=== PATIENT | female | born 1995 | race Caucasian/White ===

== ENCOUNTER 2021-06-03 14:37 | Observation (INO) | payer OTHER, SELFPAY ==
[~2021-06-03] VITALS: Ht 162.6 cm; Wt 82.6 kg
[2021-06-03 15:35] VITALS: BP 114/67
== END 2021-06-03 15:15 | disposition home or self-care (01) ==
LOC: MLD 14:37
PROVIDERS: ADMIT Obstetrics & Gynecology; ATTEND Obstetrics & Gynecology
DX: Z34.82 Encounter for supervision of other normal pregnancy, second trimester (principal); Z20.822 Contact with and (suspected) exposure to COVID-19; Z3A.21 21 weeks gestation of pregnancy; W19.XXXA Unspecified fall, initial encounter; Y93.89 Activity, other specified; Y92.89 Other specified places as the place of occurrence of the external cause
CPT/HCPCS: 59025; G0378

== ENCOUNTER 2024-02-09 12:28 | Emergency (ER) | payer OTHER ==
[~2024-02-09] VITALS: Ht 162.6 cm; Wt 88.5 kg
[2024-02-09 12:32] VITALS: BP 131/85; PULSE 65; RESP 16; TEMP 98; O2SAT 99
== END 2024-02-09 13:39 | disposition home or self-care (01) ==
LOC: MED 12:28
DX: L98.8 Other specified disorders of the skin and subcutaneous tissue (principal)
CPT/HCPCS: 99281